=== PATIENT | female | born 1985 | race Caucasian/White ===

== ENCOUNTER → 2021-07-28 16:09 | Observation (INO) ==
[2021-07-28 14:31] LABS: Protein/Creatinine Ratio,Urine 0.12 mg/mg (0.00-0.20)
[2021-07-28 14:46] LABS: Bilirubin,Urine Negative (Negative); Blood,Urine Negative (Negative); Clarity,Urine Clear (Clear); Color,Urine Light-Yellow (Yellow); Glucose,Urine (UA) Normal (Normal); Ketones,Urine Negative (Negative); Leukocyte Esterase,Urine Negative (Negative); Nitrite,Urine Negative (Negative); Protein,Urine Negative (Neg-Trace); Urobilinogen,Urine Normal (Normal)
[2021-07-28 15:40] LABS: Basophils % 0.2 %; Eosinophils % 0.2 %; Hematocrit 35.6 % (35.3-44.9); Hemoglobin 12.2 g/dL (11.5-15.4); Immature Granulocytes % 0.8 % (0-4); Lymphocytes # 1.6 K/mcL (0.6-4.6); Mean Corpuscular HGB Conc 34.3 g/dL (31.6-35.5); Mean Corpuscular Hemoglobin 32.7 pg (28.0-33.3); Mean Corpuscular Volume 95.4 fL (83.0-100.0); Mean Platelet Volume 9.3 fL (9.4-12.4); Monocytes # 0.5 K/mcL (0.0-1.3); Monocytes % 3.1 %; Neutrophils # 13.8 K/mcL (1.6-8.9); Platelet Count 225 K/mcL (140-400); Red Blood Count 3.73 M/mcL (3.82-4.97); Red Cell Distribution Width 12.6 % (11.5-14.5); Segmented Neutrophils % 85.7 %; White Blood Count 16.1 K/mcL (4.3-11.1)
[2021-07-28 15:57] LABS: Alanine Aminotransferase 8 Units/L (7-52); Aspartate Amino Transferase 14 Units/L (13-39); BUN/Creatinine Ratio 10 (6-26); Blood Urea Nitrogen 6 mg/dL (6-20); Lactate Dehydrogenase 136 Units/L (140-271); Uric Acid 3.4 mg/dL (2.3-7.6); eGFR For African Americans > 60 (> 60); eGFR For Non-African Americans > 60 (> 60)
[~2021-07-28 16:09] MED LIST: NIFEdipine Immed Rel 10 MG CAPSULE PO ONE; NIFEdipine Immed Rel 10 MG CAPSULE PO SCH; Ringers Solution, Lactated 1,000 ML IVC SCH
== END | disposition home or self-care (01) ==
LOC: 1NENULAB
PROVIDERS: ADMIT Student in an Organized Health Care Education/Training Program; ATTEND Student in an Organized Health Care Education/Training Program

== ENCOUNTER 2021-10-04 10:11 | Inpatient (IN) ==
[~2021-10-04 10:11] MED LIST changes: +*HR* Nalbuphine 10 MG/ML AMPUL IV PRN; +Azithromycin 500 MG in 0.9 % Sodium Chloride 250 ML IVPB PRN; +Famotidine 20 MG/2 ML VIAL IVP PRN; +Lidocaine 1% 20 ML MDV INFILT PRN; +Metoclopramide 10 MG/2 ML VIAL IVP PRN; -NIFEdipine Immed Rel 10 MG CAPSULE PO ONE; -NIFEdipine Immed Rel 10 MG CAPSULE PO SCH; +Naloxone 0.4 MG/ML INJ IVP PRN
[2021-10-04 11:29] LABS: Basophils % 0.4 %; Eosinophils % 0.4 %; Hematocrit 35.4 % (35.3-44.9); Hemoglobin 11.8 g/dL (11.5-15.4); Immature Granulocytes % 0.4 % (0-4); Lymphocytes # 1.9 K/mcL (0.6-4.6); Lymphocytes % 16.5 %; Mean Corpuscular HGB Conc 33.3 g/dL (31.6-35.5); Mean Corpuscular Hemoglobin 30.7 pg (28.0-33.3); Mean Corpuscular Volume 92.2 fL (83.0-100.0); Mean Platelet Volume 10.1 fL (9.4-12.4); Monocytes # 0.9 K/mcL (0.0-1.3); Neutrophils # 8.4 K/mcL (1.6-8.9); Platelet Count 195 K/mcL (140-400); Red Blood Count 3.84 M/mcL (3.82-4.97); Segmented Neutrophils % 74.3 %; White Blood Count 11.2 K/mcL (4.3-11.1)
[2021-10-04 11:32] LABS: Influenza A PCR Negative (Negative); Influenza B PCR Negative (Negative); Resp. Syncytial Virus PCR Negative (Negative)
[2021-10-04 11:33] LABS: SARS-CoV-2 by PCR (In House) Negative (Negative)
[2021-10-04 11:45] LABS: Amphetamine Screen,Urine Negative ng/mL (Cutoff=1000); Barbiturate Screen,Urine Negative ng/mL (Cutoff=200); Benzodiazepines Screen,Urine Negative ng/mL (Cutoff=200); Cannabinoid Screen,Urine Negative ng/mL (Cutoff = 50); Cocaine Screen,Urine Negative ng/mL (Cutoff= 300); Opiate Screen,Urine Negative ng/mL (Cutoff=300); Phencyclidine Screen,Urine Negative ng/mL (Cutoff=25)
[2021-10-04] MEDS ORDERED: *HR* FentaNYL (PF) 100 MCG/2 ML VIAL EP ONE (11:52)
[2021-10-04] MEDS ORDERED: Ondansetron 4 MG/2 ML VIAL IVP PRN (11:52)
[2021-10-04] MEDS ORDERED: Ropivacaine/PF 0.2% 20 ML VIAL EP ONE (11:52)
[2021-10-04] MEDS ORDERED: Naloxone 0.4 MG/ML INJ IVP PRN (11:52)
[2021-10-04] MEDS ORDERED: EPHEDrine 50 MG/ML VIAL IVP PRN (11:52)
[2021-10-04] MEDS: Oxytocin 30 UNIT/503 ML BAG IVC SCH (14:01)
[2021-10-04] MEDS ORDERED: Ropivacaine/PF 0.2% 20 ML VIAL ONE (16:21)
[2021-10-05] MEDS: Epidural Premix (fent/bupiv) 110 ML EP SCH ×2 (00:10→05:30)
[2021-10-05] MEDS: Ondansetron 4 MG/2 ML VIAL IVP PRN ×2 (00:45→08:51)
[2021-10-05] MEDS: Oxytocin 30 UNIT/503 ML BAG IVC SCH (09:59)
[2021-10-05] MEDS ORDERED: Measles/Mumps/Rubella Vacc 0.5 ML VIAL SQ PRN (10:25)
[2021-10-05] MEDS ORDERED: Rho Immune Globulin 1,500 UNIT SYRINGE IM PRN (10:25)
[2021-10-05] MEDS ORDERED: Oxytocin 30 UNIT/503 ML BAG IVC SCH (10:25)
[2021-10-05] MEDS ORDERED: Benzocaine/Menthol 56 GM AEROSOL SPRAY TP PRN (10:25)
[2021-10-05] MEDS ORDERED: Lanolin 7 G OINT...G. TP PRN (10:25)
[2021-10-05] MEDS ORDERED: Ondansetron ODT 4 MG TAB.RAPDIS SL PRN (10:25)
[2021-10-05] MEDS: Acetaminophen 325 MG TABLET PO SCH ×3 (11:03→23:30)
[2021-10-05] MEDS: Ibuprofen 600 MG TABLET PO SCH ×3 (11:03→20:01)
[2021-10-05] MEDS: Prenatal Vit/FA 1 EACH TABLET PO SCH (11:03)
[2021-10-05] MEDS ORDERED: Methylergonovine 0.2 MG/ML AMPUL IM ONE (12:59)
[2021-10-06 04:22] LABS: Basophils # 0.1 K/mcL (0.0-0.2); Basophils % 0.3 %; Eosinophils # 0.1 K/mcL (0.0-0.6); Eosinophils % 0.7 %; Hematocrit 33.4 % (35.3-44.9); Hemoglobin 11.1 g/dL (11.5-15.4); Immature Granulocytes % 0.6 % (0-4); Lymphocytes # 3.4 K/mcL (0.6-4.6); Lymphocytes % 18.5 %; Mean Corpuscular HGB Conc 33.2 g/dL (31.6-35.5); Mean Corpuscular Hemoglobin 30.8 pg (28.0-33.3); Mean Corpuscular Volume 92.8 fL (83.0-100.0); Monocytes # 1.5 K/mcL (0.0-1.3); Monocytes % 8.3 %; Platelet Count 194 K/mcL (140-400); Red Cell Distribution Width 12.8 % (11.5-14.5); Segmented Neutrophils % 71.6 %; White Blood Count 18.1 K/mcL (4.3-11.1)
[2021-10-06 04:47] VITALS: O2SAT 100
[2021-10-06 07:03] VITALS: BP 111/64; PULSE 61; TEMP 98
[2021-10-06] MEDS: Ibuprofen 600 MG TABLET PO SCH (08:16)
[2021-10-06] MEDS: Prenatal Vit/FA 1 EACH TABLET PO SCH (08:16)
[2021-10-06] MEDS: Acetaminophen 325 MG TABLET PO SCH (08:17)
== END 2021-10-06 13:00 | disposition home or self-care (01) | DRG 807 ==
LOC: 1NENULAB → 1NENUOBS 10-05 10:15
PROVIDERS: ADMIT Obstetrics & Gynecology; ATTEND Obstetrics & Gynecology